=== PATIENT | female | born 1940 | race Hispanic/Latino ===

== ENCOUNTER 2019-07-13 11:33 | Outpatient (CLI) | payer MEDICARE, BC ==
--- NOTE | 2019-07-13 11:57 | RAD ---
EXAM: Chest PA and lateral: HISTORY: Pneumonia COMPARISON: 11/09/2015 FINDINGS: Heart: Normal cardiac silhouette Aorta: Unremarkable Pulmonary vessels: Normal Costophrenic angles: Costophrenic angles are clear. Lungs: No consolidation or masses. Pneumothorax: No pneumothorax Osseous structures: No osseous abnormalities IMPRESSION: No acute cardiopulmonary process.
== END 2019-07-13 11:34 | disposition home or self-care (01) ==
LOC: BICRAD 11:33
PROVIDERS: ATTEND Allergy & Immunology
DX: J18.9 Pneumonia, unspecified organism (principal)
CPT/HCPCS: 71046